=== PATIENT | female | born 1945 | race Caucasian/White ===

== ENCOUNTER 2024-04-24 15:40 | Emergency (ER) | payer SELFPAY ==
[2024-04-24 15:47] VITALS: BP 141/80
[2024-04-24 15:53] VITALS: BP 141/80; PULSE 78; RESP 16; TEMP 36.2; O2SAT 98; BMI 27.8
--- NOTE | 2024-04-24 15:59 | ED.GENADULT ---
HPI - General Adult General Chief complaint: Extremity Injury, Lower Stated complaint: lft knee and ankle px and swelling, rt should px Time Seen by Provider: 04/24/24 15:44 Source: patient Mode of arrival: Ambulatory Limitations: no limitations History of Present Illness HPI narrative: Patient is a 78-year-old female. Initially it was somewhat difficult to get an exact history as to why she was here in the emergency department but appears that she was concerned about a blood clot in her left leg. She has had years of episodes of spasming behind her left leg. She states that it seems to be getting worse over the past week. They seemed to only occur at night. She states it is because she does not drink as much fluids at night because she does not want to get up and urinate. She states she has now had persistent pain behind her left knee. She was also having months of right shoulder pain, months hip pain, no fevers. No chest pain or shortness of breath. She does not have a primary doctor. She states she was ?given up on doctors? she states she can not afford a primary doctor. Related Data Allergies Allergy/AdvReac Type Severity Reaction Status Date / Time No Known Drug Allergies Allergy Verified 04/24/24 16:14 Review of Systems Constitutional Constitutional: Reports system reviewed and no additional complaints, except as documented Cardiovascular Cardiovascular: Reports system reviewed and no additional complaints, except as documented Musculoskeletal Musculoskeletal: Reports system reviewed and no additional complaints, except as documented Integumentary/Breasts Skin/Breast: Reports system reviewed and no additional complaints, except as documented Neurologic Neurologic: Reports system reviewed and no additional complaints, except as documented Hematologic/Lymphatic On Anticoagulants: No Patient History Social History Smoking Status: Never smoker Exam Initial Vital Signs Initial Vital Signs: Vital Signs Temperature 97.1 F L 04/24/24 15:53 Pulse Rate 78 04/24/24 15:53 Respiratory Rate 16 04/24/24 15:53 Blood Pressure 141/80 H 04/24/24 15:53 Pulse Oximetry 98 04/24/24 15:53 Oxygen Delivery Method Room Air 04/24/24 15:53 Resp Effort & Inspection: normal respiratory effort Neuro General: patient alert and patient awake Extrem Other: Patient has very mild swelling to the posterior aspect of the left knee. Some tenderness to palpation in the popliteal fossa. No other gross deformities. Patient can abduct her right shoulder to 90? but not further than that because of discomfort. Course Orders Ordered: ED Orders 04/24/24 15:58 US periph venous low extrem lt Stat Vital Signs Vital signs: Vital Signs - 8 hr 04/24/24 15:53 Temperature 97.1 F L Pulse Rate 78 Respiratory Rate 16 Blood Pressure 141/80 H Pulse Oximetry 98 Oxygen Delivery Method Room Air Medical Decision Making Imaging Data US - DVT: Radiologist's Impression: PROCEDURE: US PERIPH VENOUS LOW EXTREM LT INDICATIONS: Pain behind left knee, eval for DVT TECHNIQUE: Real-time imaging, as well as color and pulse Doppler interrogation, were performed of the lower extremity deep veins from the inguinal ligament to the popliteal fossa, with documentation of the visualized calf veins. COMPARISON: None. FINDINGS: The common femoral, femoral, popliteal, and the visualized calf veins are normally compressible, and free of intraluminal thrombus. Color and pulse Doppler demonstrate normal phasic intraluminal flow. There is normal augmentation response to distal compression maneuver. 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 No abnormal vascularity can be seen. IMPRESSION: No findings of lower extremity deep venous thrombosis. Septated Castro's cyst noted, without abnormal vascularity. MDM Narrative Medical decision making narrative: Ultrasound does not show any signs of a DVT. She does have a Castro's cyst in her right leg which could be causing some of her discomfort. The rest of her issues are chronic need to be handled by primary doctor. She would multiple reasons the why she does not have a primary doctor. Offered her a phone number to call but she declined. Offered her to see social work to try to help with finding a primary doctor but she declined this as well. There was no indication for admission to the hospital. Will discharge home with return precautions. Discharge Plan Departure Patient Disposition: Home Clinical Impression: Castro's cyst of knee Instructions: DI for Castro Cyst Activity Restrictions/Additional Instructions: You can contact [phone] during business hours. Individuals at this number can help you establish a primary care doctor in the local area which I recommend as you may need further evaluation of your right shoulder discomfort. Return to the emergency department for new symptoms. Referrals: Miscellaneous,[facility] [Primary Care Provider] - Stand Alone Forms: Patient Portal/API
--- NOTE | 2024-04-24 16:05 | PC.NURSE ---
patient reports having leg spasms for years now, today she is in the department because 10 days ago the spasms were so bad that she in unable to bend her left leg without lots of pain. she reports no pain when leg is in resting position. patient has not taken any medication for the pain
[2024-04-24 16:11] VITALS: BP 131/63
[2024-04-24 17:25] VITALS: BP 150/67; PULSE 65; O2SAT 96
== END 2024-04-24 17:32 | disposition home or self-care (01) ==
PROVIDERS: Emergency Provider Emergency Medicine
DX: M71.21 Synovial cyst of popliteal space [Baker], right knee (principal)
CPT/HCPCS: 93971; 99281; 99283